=== PATIENT | male | born 1995 | race Two or more races ===

== ENCOUNTER 2016-06-01 22:10 | Emergency (ER) | payer SELFPAY ==
[2016-06-01] MEDS ORDERED: IPRATROPIUM BROM 0.5 MG/2.5ML INH SOL NEB ONE (22:30)
[2016-06-01] MEDS ORDERED: ALBUTEROL SULF 2.5 MG/0.5ML(0.5%) NEB SOLN NEB ONE ×2 (22:30→23:00)
[2016-06-01] MEDS ORDERED: methylPREDNISolone SOD SUCC 125 MG/2 ML VL IV ONE (22:45)
[2016-06-01] MEDS ORDERED: ALBUTEROL SULF 2.5 MG/0.5ML(0.5%) NEB SOLN ONE (22:48)
[2016-06-01 23:03] LABS: Basophils # (auto) 0 uL; Basophils % (auto) 0.5 % (0.0-2.0); DEFINITIVE VIEW TRANSMISSION; Eosinophils # (auto) 0.9 uL; Eosinophils % (auto) 8.5 % (0.0-7.0); Hematocrit 46.5 % (41.0-53.0); Hemoglobin 15.6 g/dL (13.5-17.5); Lymphocytes # (auto) 2.2 uL; Lymphocytes % (auto) 21.6 % (10.0-50.0); Mean Corpuscular Hemoglobin 29.5 pg (28.0-32.0); Mean Corpuscular Hgb Conc. 33.5 g/dL (32.0-36.0); Mean Corpuscular Volume 88.1 fL (80.0-100.0); Mean Platelet Volume 9.1 fL (7.4-10.4); Monocytes # (auto) 0.7 uL; Monocytes % (auto) 6.8 % (0.0-12.0); Neutrophils # (auto) 6.5 uL; Neutrophils % (auto) 62.6 % (37.0-80.0); Platelet Count (auto) 308 10^3/uL (140-450); Red Cell Distribution Width 13.8 % (11.6-16.0); White Blood Cell 10.4 10^3/uL (4.4-10.8)
[2016-06-01 23:10] LABS: Albumin 3.9 g/dL (3.4-5.0); Calcium 8.8 mg/dL (8.5-10.1); Potassium 3.7 mmol/L (3.5-5.1)
[2016-06-01 23:12] LABS: BUN/Creatinine Ratio 14.9
[2016-06-01 23:15] LABS: Bilirubin, Total 0.2 mg/dL (0.2-1.0)
[2016-06-02 02:41] VITALS: BP 108/53
== END 2016-06-02 04:31 | disposition home or self-care (01) ==
LOC: ER 22:19
DX: J45.901 Unspecified asthma with (acute) exacerbation (principal); R73.9 Hyperglycemia, unspecified; E87.8 Other disorders of electrolyte and fluid balance, not elsewhere classified; R07.0 Pain in throat
CPT/HCPCS: 36415; 71010; 80053; 83735; 85025; 94644; 96374; 99285; J2930

== ENCOUNTER 2018-01-11 09:45 | Emergency (ER) | payer SELFPAY ==
[~2018-01-11] VITALS: Ht 157.5 cm; Wt 68.0 kg
[2018-01-11 09:58] VITALS: BP 135/92
[2018-01-11] MEDS ORDERED: HYDROcodone-ACET 5/325MG TAB PO ONE (12:00)
[2018-01-11] MEDS ORDERED: KETOROLAC TROMETH 60MG/2ML VIAL IM ONE (12:00)
== END 2018-01-11 13:06 | disposition home or self-care (01) ==
LOC: ER 09:45
DX: M79.605 Pain in left leg (principal); M25.552 Pain in left hip; M54.9 Dorsalgia, unspecified; J45.909 Unspecified asthma, uncomplicated
CPT/HCPCS: 71111; 73552; 93971; 96372; 99284; J1885